=== PATIENT | male | born 1980 | race Caucasian/White ===

== ENCOUNTER 2020-11-07 00:39 | Emergency (ER) | payer OTHER ==
[~2020-11-07] VITALS: Ht 180.3 cm; Wt 96.3 kg
[2020-11-07] MEDS ORDERED: DIPH,PERTUSS(ACELL),TET VAC/PF 0.5 ML SYRINGE. VAX IM ONE (01:30)
--- NOTE | 2020-11-07 01:39 | PHYS DOC ---
Past History Past Medical History: Hypothyroid, Other Past Surgical History: Other Smoking: Cigarettes, Less than 1pk/day Alcohol Use: Occasionally Drug Use: None General Adult EDM: Chief Complaint: FACE PROBLEM HPI: HPI: "... I ve been drinking.. and I went to use the skate board.. you know the one with one wheel or ball..and I took a face plant on the pavement..." Patient is a 40 year old male who presents with above hx and complaints of head injury, abrasions and laceration to Lt eye brow after falling off a skateboard. Patient has a hematoma over left eye with a 2 cm abrasion laceration and eyebrow. Has abrasion to ankle as well as left palm. Patient does not remember his last tetanus. Distal neurovascular appears to be intact. No loss of consciousness with the head injury. Patient does admit to intake of alcohol today. Patient denies any other health problems other than hypothyroidism. Patient normally follows with Dr. Reed. No history of recent travel. No history of severe ill contacts. No history immunosuppression. Review of Systems: Review of Systems: Constitutional: Denies fever or chills Eyes: Denies change in visual acuity HENT: Complains of head injury Respiratory: Denies cough or shortness of breath Cardiovascular: Denies chest pain or edema GI: Denies abdominal pain, nausea, vomiting, bloody stools or diarrhea : Denies dysuria Musculoskeletal: Denies back pain or joint pain Integument: Complains of abrasion Neurologic: Denies headache, focal weakness or sensory changes Endocrine: Denies polyuria or polydipsia Lymphatic: Denies swollen glands Psychiatric: Denies depression or anxiety Family History: Family History: Noncontributory to presentation Current Medications: Current Meds: Current Medications Medications (Trade) Dose Ordered Sig/Go Start Time Stop Time Status Last Admin Dose Admin Diphtheria/ Pertussis/Tetanus Vacc (ADACEL TDap SYRINGE) 0.5 ml ONCE ONCE 11/07/20 01:30 11/07/20 01:31 DC Allergies: Allergies: Allergies Coded Allergies Type Severity Reaction Last Updated Verified No Known Drug Allergies 01/05/14 No Physical Exam: PE: Constitutional: Moderate acute distress, intoxicated appearance. [] HENT: Normocephalic, contusion and 2 cm laceration left eyebrow, bilateral external ears normal, oropharynx moist, no oral exudates, nose normal. [] Eyes: PERRLA, EOMI, conjunctiva mild injection no discharge. [] Neck: Normal range of motion, no tenderness, supple, no stridor. [] Cardiovascular:Heart rate regular rhythm, no murmur [] Lungs & Thorax: Bilateral breath sounds to apex with few scattered wheezes auscultation [] Abdomen: Bowel sounds normal, soft, no tenderness, no masses, no pulsatile masses. [] Skin: Warm, dry, no erythema, no rash. [] Back: No tenderness, no CVA tenderness. [] Extremities: No tenderness, no cyanosis, no clubbing, ROM intact, no edema. Abrasion ankles and. Marked abrasion to left palmar area. Neurologic: Alert and oriented X 3, normal motor function, normal sensory function, no focal deficits noted. Mild discoordination. Is amatory without problems. DTRs +2 patella brachial. 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 Psychologic: Affect normal, judgement normal, mood normal. [] Current Patient Data: Vital Signs: Vital Signs Date Time Temp Pulse Resp B/P (MAP) Pulse Ox O2 Delivery O2 Flow Rate FiO2 11/07/20 01:00 98.4 94 20 132/79 (96) 96 Room Air EKG: EKG: [] Radiology/Procedures: Radiology/Procedures: [][address] [address] IMAGING REPORT Signed PATIENT: YENNIFER SWARTZ ACCOUNT: [id number] : 1980 LOCATION: ER AGE: 40 SEX: M EXAM STATUS: REG ER ORD. PHYSICIAN: LENCHO BREAUX MD REASON: HEAD INJURY, bump above left eye. PROCEDURE: CT HEAD AND CERVICAL SPINE WO INDICATION: Reason: HEAD INJURY, bump above left eye. / Spl. Instructions: / History: COMPARISON: None. TECHNIQUE: Axial CT images obtained through the head and cervical spine without intravenous contrast. Coronal and sagittal reformats processed of cervical spine. One or more of the following individualized dose reduction techniques were utilized for this examination: 1. Automated exposure control; 2. Adjustment of the mA and/or kV according to patient size; 3. Use of iterative reconstruction technique. FINDINGS: Head: No intracranial hemorrhage. No midline shift. Basal cisterns patents. Ventricles and sulci are within normal limits. No acute osseous abnormality. Orbits and paranasal sinuses unremarkable. Hematoma overlying the left orbital and supraorbital region. Cervical: No definite acute fracture. No dislocation. No evidence of perivertebral hematoma. Degenerative changes the spine with some disc protrusions and osteophyte formation. IMPRESSION: * No acute intracranial hemorrhage. * Subcutaneous hematoma overlying the left orbital and supraorbital region. * Degenerative changes the spine without a definite acute fracture. Electronically signed by: Kota Carias MD (11/07/2020 2:24 AM) [id number] DICTATED AND SIGNED BY: KOTA CARIAS MD DATE: 11/07/20213 CC: LENCHO BREAUX MD; ELI REED ~MTH0 0 Heart Score: C/O Chest Pain: N/A Risk Factors: Risk Factors: DM, Current or recent (<one month) smoker, HTN, HLP, family history of CAD, obesity. Risk Scores: Score 0 - 3: 2.5% MACE over next 6 weeks - Discharge Home Score 4 - 6: 20.3% MACE over next 6 weeks - Admit for Clinical Observation Score 7 - 10: 72.7% MACE over next 6 weeks - Early Invasive Strategies Course & Med Decision Making: Course & Med Decision Making Pertinent Labs and Imaging studies reviewed. (See chart for details) Keep lacerations clean and dry. Do not apply antibiotic ointment to the one on the eyebrow this will dissolve the tissue glue. Avoid direct shower water to left eyebrow for at least 2 or 3 days. Monitor for infection. Monitor for mental status changes. Recommend avoiding alcohol for the next 24 hours. Follow-up primary care. Ice packs as needed. Take Tylenol for pain. May use Polysporin on other abrasions but not the one on the eyebrow. Procedure note wound care- Lacerations and abrasions cleaned with peroxide. Applied tissue glue removed to left eyebrow laceration Impression: 1. Alcohol intoxication 2. Head injury 3. Laceration 2 cm left eyebrow [] Dragon Disclaimer: Dragon Disclaimer: This electronic medical record was generated, in whole or in part, using a voice recognition dictation system. Departure Departure: Referrals: ELI REED (PCP) [place] Disclaimer This chart was dictated in whole or in part using Voice Recognition software in a busy, high-work load, and often noisy Emergency Department environment. It may contain unintended and wholly unrecognized errors or omissions. LENCHO BREAUX MD November 07, 2020 01:39
--- NOTE | 2020-11-07 02:26 | RAD ---
INDICATION: Reason: HEAD INJURY, bump above left eye. / Spl. Instructions: / History: COMPARISON: None. TECHNIQUE: Axial CT images obtained through the head and cervical spine without intravenous contrast. Coronal a nd sagittal reformats processed of cervical spine. One or more of the following individualized dose reduction techniques were utilized for this examinat ion: 1. Automated exposure control; 2. Adjustment of the mA and/or kV according to patient size; 3 . Use of iterative reconstruction technique. FINDINGS: Head: No intracranial hemorrhage. No midline shift. Basal cisterns patents. Ventricles and sulci are within normal limits. No acute osseous abnormality. Orbits and paranasal sinuses unremarkable. Hematoma overlying the left orbital and supraorbital region. Cervical: No definite acute fracture. No dislocation. No evidence of perivertebral hematoma. Degenerative changes the spine with some disc protrusions and osteophyte formation. IMPRESSION: * No acute intracranial hemorrhage. * Subcutaneous hematoma overlying the left orbital and supraorbital region. * Degenerative changes the spine without a definite acute fracture. Electronically signed by: Puma Carias MD (11/07/2020 2:24 AM) [id number]
[2020-11-07 02:50] VITALS: BP 119/69
== END 2020-11-07 02:55 | disposition home or self-care (01) ==
LOC: ER 00:39
DX: S01.112A Laceration without foreign body of left eyelid and periocular area, initial encounter (principal); F10.129 Alcohol abuse with intoxication, unspecified; S90.512A Abrasion, left ankle, initial encounter; S90.511A Abrasion, right ankle, initial encounter; S60.512A Abrasion of left hand, initial encounter; E03.9 Hypothyroidism, unspecified; F17.210 Nicotine dependence, cigarettes, uncomplicated; Y90.9 Presence of alcohol in blood, level not specified; V00.131A Fall from skateboard, initial encounter; Y93.51 Activity, roller skating (inline) and skateboarding; Y92.89 Other specified places as the place of occurrence of the external cause; Y99.8 Other external cause status
CPT/HCPCS: 12011; 70450; 72125; 90471; 90715; 99285-25